=== PATIENT | male | born 2000 | race African-American/Black ===

== ENCOUNTER 2021-12-15 04:29 | Emergency (ER) | payer BC ==
[~2021-12-15] VITALS: Ht 177.8 cm; Wt 70.3 kg
--- NOTE | 2021-12-15 04:42 | PHYS DOC ---
Past History Past Medical History: Asthma Drug Use: Marijuana General Adult EDM: Chief Complaint: ASTHMA HPI: HPI: ".. My Asthma is kicking.. I usually get bad in the spring and with rapid weather changes... ". " It been kicking me all week.. " Patient is a 21 year old male who presents with above hx and complaints of asthma exacerbation. Patient has had multiple episodes of asthma exacerbations in the past. Most exacerbation occurred when he was a child. Patient does not know his best peak flow. Patient does state his triggers are primary in the spring and with rapid weather changes. Patient also complains of seasonal allergies in the spring. Patient does smoke marijuana daily. Patient denies use of tobacco. Patient has had admissions overnight as a child for asthma. Patient has ran out of home albuterol and his MDI. Patient has not been on steroids recently. No history of fever or chills. On initial presentation patient sats were high 80s to 90. Patient denies any travel. Patient denies specific ill contacts. Patient has not gotten COVID vaccination, flu vaccination or Pneumovax. Patient not currently following with any primary care. Review of Systems: Review of Systems: Constitutional: Denies fever or chills Eyes: Denies change in visual acuity HENT: Denies nasal congestion or sore throat Respiratory: Complains of a nonproductive cough, wheezing and shortness of breath Cardiovascular: Denies chest pain or edema GI: Denies abdominal pain, nausea, vomiting, bloody stools or diarrhea : Denies dysuria Musculoskeletal: Denies back pain or joint pain Integument: Denies rash Neurologic: Denies headache, focal weakness or sensory changes Endocrine: Denies polyuria or polydipsia Lymphatic: Denies swollen glands Psychiatric: Denies depression or anxiety Family History: Family History: Patient has a sister that of asthma attack Current Medications: Current Meds: See nursing for home meds Allergies: Allergies: No known drug allergies Physical Exam: PE: Constitutional: Well developed, well nourished, moderate acute distress, non- toxic appearance. [] HENT: Normocephalic, atraumatic, bilateral external ears normal, oropharynx moist, no oral exudates, nose swollen turbinates clear rhinorrhea. Postnasal drainage. Eyes: PERRLA, EOMI, conjunctiva normal, no discharge. [] Neck: Normal range of motion, no tenderness, supple, no stridor. [] Cardiovascular: Tachycardia heart rate regular rhythm, no murmur [] Lungs & Thorax: Bilateral breath sounds equal at apex with scattered wheezes throughout on auscultation [Has] no intercostal retractions. Abdomen: Bowel sounds normal, soft, no tenderness, no masses, no pulsatile masses. [] Skin: Warm, dry, no erythema, some eczema changes. Back: No tenderness, no CVA tenderness. [] Extremities: No tenderness, no cyanosis, no clubbing, ROM intact, no edema. No cording appreciated. Neurologic: Alert and oriented X 3, moves all extremities on request, does have distal sensory,, no focal deficits noted. [] Psychologic: Affect anxious, judgement normal, mood normal. [] EKG: EKG: [] Radiology/Procedures: Radiology/Procedures: [] Heart Score: C/O Chest Pain: N/A HEART Score for Chest Pain: HEART Score for Chest Pain Response (Comments) Value History Slighlty/Non-Suspicious 0 ECG Normal 0 Age < 45 0 Risk Factors 1 or 2 Risk Factors 1 Total 1 Risk Factors: Risk Factors: DM, Current or recent (<one month) smoker, HTN, HLP, family history of CAD, obesity. Risk Scores: Score 0 - 3: 2.5% MACE over next 6 weeks - Discharge Home Score 4 - 6: 20.3% MACE over next 6 weeks - Admit for Clinical Observation Score 7 - 10: 72.7% MACE over next 6 weeks - Early Invasive Strategies Course & Med Decision Making: Course & Med Decision Making Pertinent Labs and Imaging studies reviewed. (See chart for details) Patient monitored in the ED after use of MDI-x3.. Patient was able to maintain sats above 92% on room air. Patient started on prednisone 50 mg a day for the next 5 days. Patient strongly encouraged to stop smoking marijuana. Patient strongly encouraged to follow-up with primary care. Discussed patient a asthma rescue plan. Patient return if any concerns. Recommend patient update his vaccinations when off this current steroid treatment plan. Patient requesting discharge. Patient follow-up pending rapid Flu and Covid.. Impression: 1. Asthma exacerbation 2. History of daily marijuana use 3. History of seasonal allergies-primarily in spring 4. Influenza A+ [] [place] Disclaimer: Aracelis Disclaimer: This electronic medical record was generated, in whole or in part, using a voice recognition dictation system. Departure Departure: Referrals: PCP,NO (PCP) Scripts Albuterol Sulfate (ALBUTEROL SULFATE NEB SOLN ) 2.5 Mg/3 Ml Vial.neb 2.5 MG NEB QID for FOR ASTHMA, #90 EACH 0 Refills Prov: TYREL CARDENAS MD 12/15/21 Prednisone (PREDNISONE) 50 Mg Tablet 50 MG PO DAILY for asthma for 5 Days, #5 TAB Prov: TYREL CARDENAS MD 12/15/21 Aracelis Disclaimer This chart was dictated in whole or in part using Voice Recognition software in a busy, high-work load, and often noisy Emergency Department environment. It may contain unintended and wholly unrecognized errors or omissions. Dragon Disclaimer This chart was dictated in whole or in part using Voice Recognition software in a busy, high-work load, and often noisy Emergency Department environment. It may contain unintended and wholly unrecognized errors or omissions. TYREL CARDENAS MD Dec 15, 2021 04:42
[2021-12-15] MEDS ORDERED: ALBUTEROL SULFATE 8GM INHALER. ONE (04:52)
[2021-12-15] MEDS ORDERED: predniSONE 10 MG TABLET. PO ONE (05:00)
[2021-12-15] MEDS ORDERED: ALBUTEROL SULFATE 8GM INHALER. INH ONE (05:00)
[2021-12-15] MEDS ORDERED: ALBU2.5V5 NEB (05:23)
[2021-12-15] MEDS ORDERED: PRED50TA PO (05:23)
[2021-12-15 06:30] VITALS: BP 115/65
[2021-12-15 07:02] LABS: INFLUENZA A PATIENT POSITIVE (NEGATIVE); INFLUENZA B PATIENT NEGATIVE (NEGATIVE)
== END 2021-12-15 06:32 | disposition home or self-care (01) ==
LOC: ER 04:29
DX: J45.901 Unspecified asthma with (acute) exacerbation (principal); J10.1 Influenza due to other identified influenza virus with other respiratory manifestations; F12.10 Cannabis abuse, uncomplicated; Z20.822 Contact with and (suspected) exposure to COVID-19
CPT/HCPCS: 87428; 94640; 99283; J7512; 94664